=== PATIENT | female | born 1990 | race Hispanic/Latino ===

== ENCOUNTER 2019-09-17 07:08 | Day surgery (SDC) | payer MEDICAID, OTHER ==
[2019-09-17] VITALS (8 sets, daily range): BP systolic 87–114; BP diastolic 52–63
[~2019-09-17] VITALS: Ht 157.5 cm; Wt 63.5 kg
[~2019-09-17 07:08] MED LIST: SODIUM CHLORIDE 0.9% 1000ML 1,000 ML IV ONE
[2019-09-17] MEDS ORDERED: ESCI10TA PO (07:51)
[2019-09-17] MEDS ORDERED: PROPOFOL 10 MG/ML 20ML VIAL IV ONE (08:19)
== END 2019-09-17 09:15 | disposition home or self-care (01) ==
LOC: DAH 07:08
PROVIDERS: ATTEND Internal Medicine Gastroenterology
DX: R19.7 Diarrhea, unspecified (principal); R93.3 Abnormal findings on diagnostic imaging of other parts of digestive tract; R10.84 Generalized abdominal pain; F32.9 Major depressive disorder, single episode, unspecified; Z79.899 Other long term (current) drug therapy
CPT/HCPCS: 45380; 81025; 88305; J2704; J7030